=== PATIENT | female | born 1955 | race Caucasian/White ===

== ENCOUNTER 2019-03-06 14:35 | Inpatient (IN) ==
[2019-03-06 16:32] LABS: BASO# 0.03 X1000 (0.0-0.2); BASO% 0.2 % (0.0-0.8); EOS# 0.02 X1000 (0.0-0.7); EOS% 0.2 % (0.0-10.0); HEMATOCRIT 37.3 % (37.0-47.0); HEMOGLOBIN 12.2 g/dL (12.0-16.0); IMM GRAN# 0.17 X1000 (0.0-0.04); IMM GRAN% 1.3 % (0.0-0.5); LYMPH# 6.74 X1000 (1.2-3.4); LYMPH% 51.6 % (20.5-51.1); MCH 30.2 PG (27-31); MCHC 32.7 g/dL (33-37); MCV 92.3 FL (81-99); MONO# 0.83 X1000 (0.11-0.59); MONO% 6.4 % (1.7-9.3); MPV 10.2 FL (7.4-10.4); NEUT# 5.28 X1000 (1.4-6.5); NEUT% 40.3 % (42.2-75.2); PLT 230 X1000 (130-400); RBC 4.04 XMIL (4.2-5.4); RDW 16.2 % (11.5-14.5); WBC 13.07 X1000 (4.8-10.8)
--- NOTE | 2019-03-06 16:43 | Diag Imaging Result Doc PS360 ---
EXAM: CT HEAD W/O CONTRAST INDICATION: altered mental status TECHNIQUE: This exam was performed using automated exposure control, adjustment of mA or kV according to patient size, and/or use of iterative reconstruction technique. COMPARISON: 08/05/2017 FINDINGS: There is no definite acute infarct given the limited sensitivity of CT versus MRI. There is no discrete intracranial mass, mass effect, or intracranial hemorrhage. The surrounding soft tissues and bony structures are essentially unremarkable. IMPRESSION: No evidence of acute intracranial pathology. Electronically signed by Arcadio Stockton 03/06/2019 4:40 PM
[2019-03-06 16:52] LABS: ALB/GLOB RATIO 1.7; ALBUMIN 3.9 g/dL (3.5-5.0); CALCIUM 8.3 mg/dL (8.8-10.2); CREATININE 4.6 mg/dL (0.5-0.9); POTASSIUM 3.6 mmol/L (3.5-5.1); TOTAL BILIRUBIN 0.28 mg/dL (0.20-1.00); TOTAL PROTEIN 6.2 g/dL (6.3-8.3)
--- NOTE | 2019-03-06 16:55 | Diag Imaging Result Doc PS360 ---
EXAM: CHEST-2 VIEWS INDICATION: altered mental status TECHNIQUE: 2 views COMPARISON: 08/12/2017 FINDINGS: The central vasculature appears slightly prominent suggesting possible pulmonary venous congestion. There is also possible mild infiltrate near the right lung apex. There is no discrete pleural fluid collection or pneumothorax. The heart is mildly prominent but stable. IMPRESSION: Suggestion of mild pulmonary venous congestion and a possible developing infiltrate in the right upper lobe near the apex. Electronically signed by Arcadio Stockton 03/06/2019 4:53 PM
[2019-03-06 17:21] LABS: CK INDEX 4.5 (0.0-2.5); CK-MB 25.58 ng/mL (0.0-5.0)
[2019-03-06] MEDS ORDERED: NS 1,000 ML IV ONE (17:45)
--- NOTE | 2019-03-06 17:56 | PROVIDER DOCUMENTATION ---
This chart was entered by Rosie Zamora Scribe, acting as scribe for Gage Soliz DO. HPI-General Adult - General Chief Complaint: Altered Mental Status Stated Complaint: AMS Time Seen by Provider: 03/06/19 14:38 Source: patient, family (Daughter) Allergies/Adverse Reactions: Patient Allergies Allergy/AdvReac Type Severity Reaction Status Date / Time levofloxacin [From Levaquin] AdvReac NAUSEA/VOMI Verified 03/06/19 15:32 TING Home Medications: Home Medication List Medication Instructions Recorded Confirmed Last Taken Type Rosuvastatin Calcium 10 mg PO QHS 07/16/17 08/05/17 Unknown History Alprazolam [Xanax] 0.5 mg PO TID #90 tab 08/02/17 08/05/17 Unknown Rx Baclofen 20 mg PO TID #90 tab 08/02/17 08/05/17 Unknown Rx Duloxetine [Cymbalta] 60 mg PO DAILY #30 cap 08/02/17 08/05/17 Unknown Rx Hydrochlorothiazide 20 mg PO QAM #30 tab 08/02/17 08/05/17 Unknown Rx Windthorst Carbonate E.r. [Lithobid] 300 mg PO QHS #30 tab 08/02/17 08/05/17 Unknown Rx Temazepam [Restoril] 30 mg PO HS PRN PRN #30 capsule 08/02/17 08/05/17 Unknown Rx Trazodone [Desyrel] 100 mg PO HS PRN PRN #30 tab 08/02/17 08/05/17 Unknown Rx Iron Carbonyl/Ascorbic Acid 1 each PO BID tablet 08/19/17 Unknown Rx [Icar-C] Levetiracetam [Keppra] 500 mg PO BID tablet 08/19/17 Unknown Rx - History of Present Illness -Gen Adult Nature of Presenting Problems: 63 y/o female with h/o bipolar disorder is brought to the ED via EMS with AMS. Daughter states a neighbor called and told her to check on the patient. Daughter states on her arrival the patient's apartment was a mess including feces in the floor and the patient was in the bathroom refusing to come out. The daughter believes the patient has not eaten or bathed in at least several days. The patient denies pain. Location of Pain/Injury: reports: generalized Onset/Duration: reports: unsure Timing: reports: still present Associated Symptoms: reports: denies symptoms Similar Symptoms Previously?: Yes Review of Systems - Adult - REVIEW OF SYSTEMS - ADULT ROS:: unobtainable per condition (The patient is confused, lethargic but denies pain) Constitutional: reports: no symptoms reported Past History - Adult - PAST MEDICAL HISTORY-ADULT Review of Records: reports: Old Records Reviewed, Nursing Assessment Review, Medications Reviewed Major Childhood Illnesses: reports: denies history Cardiovascular: reports: HTN, hyperlipidemia Respiratory: reports: denies history Gastrointestinal: reports: denies history Obstetrical/Gynecological: reports: denies history Genitourinary: reports: denies history Musculoskeletal: reports: chronic pain (back) Neurological: reports: denies history Psychiatric: reports: bipolar, depression Endocrine/Immune: reports: denies history Other Conditions: reports: denies history - PRIOR SURGERIES/PROCEDURES Surgical/Procedure History: reports: other (spinal fusion) - PRIOR HOSPITALIZATIONS Prior Hospitalizations: reports: psychiatric or rehab - IMMUNIZATION STATUS Childhood Immunizations: See Nurse Assessment Flu Vaccine: See Nurse Assessment - FAMILY HISTORY Family History: reviewed, not pertinent - SOCIAL HISTORY Smoking: cigarettes Living Situation: alone Physical Exam-General - PHYSICAL EXAM-ADULT Initial Vital Signs Reviewed: Yes - CONSTITUTIONAL General Appearance: lethargic (but responsive), other (confused) - HEAD, EARS, NOSE, MOUTH & THROAT HENMT: normocephalic/atraumatic, moist mucous membranes - NECK Neck: supple - RESPIRATORY Respiratory: lungs clear, normal breath sounds. negative: rales, rhonchi, wheezing - CARDIOVASCULAR Cardiovascular: regular rate, rhythm, no gallop - GASTROINTESTINAL (ABDOMEN) Abdominal Exam: non tender, soft. negative: guarding, rebound - SKIN Integumentary: normal color, warm/dry. 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 nml as tested, other (confused) - PSYCHIATRIC Psych/Mental Status: other (confused) Progress - PLAN OF CARE/RESULTS Progress/Plan/Lab Results: Vital Signs - 8 hr 03/06/19 14:39 Temperature 97.6 F Pulse Rate 79 Respiratory Rate 18 Blood Pressure 130/71 O2 Sat by Pulse Oximetry 95 Result Diagrams: 03/06/19 16:18 03/06/19 16:18 - EKG 1 Time of EKG reading by physician:: 15:21 EKG Read and Signed by:: Gage Soliz EKG Interpretation (*Must complete 3 of following elements*): Abnormal Rate: 79 Rhythm: NSR Comments: possible left atrial enlargement, nonspecific T wave abnormality - CT/MRI 1 CT Study: Head (EXAM: CT HEAD W/O CONTRAST INDICATION: altered mental status TECHNIQUE: This exam was performed using automated exposure control, adjustment of mA or kV according to patient size, and/or use of iterative reconstruction technique. COMPARISON: 08/05/2017 FINDINGS: There is no definite acute infarct given the limited sensitivity of CT versus MRI. There is no discrete intracranial mass, mass effect, or intracranial hemorrhage. The surrounding soft tissues and bony structures are essentially unremarkable. IMPRESSION: No evidence of acute intracranial pathology. Electronically signed by Arcadio Stockton 03/06/2019 4:40 PM) - CONSULTS/PCP/HOSPITALIST Notification #1 *Consult/PCP/Hospitalist*: Hospitalist[facility]neha Time Discussed: 17:53 Reason/Comments: rhabdo, CK elevated, AMS Consult Disposition: Admit (Dr. Macedo) Departure - Departure Date of Disposition Decision: 03/06/19 Time of Disposition Decision: 17:54 DIAGNOSIS: Acute renal failure Qualifiers: Acute renal failure type: unspecified Qualified Code(s): N17.9 - Acute kidney failure, unspecified Pneumonia Qualifiers: Pneumonia type: due to unspecified organism Laterality: right Lung location: upper lobe of lung Qualified Code(s): J18.1 - Lobar pneumonia, unspecified organism Disposition: ADMITTED INPATIENT 09 Certified Medical Emergency: Emergent Condition: Serious Referrals and Follow-Ups: None,PCP [NON-STAFF PROVIDER] - - Critical Care Note This patient required my direct & personal management of CC.: No Attestation - Physician/ MARY Attestation Patient care was provided by Advanced Practice Provider:: No The physician spent face to face time with patient:: Yes Advanced Practice Provider documentation review:: Supervising physician onsite and consulted in the evaluation and care of this patient. The physician did have a face to face encounter with the patient. This chart was documented by the indicated scribe, (Rosie Zamora, Catina) and accurately reflects the services I performed and decisions made by , Gage Soliz DO, as attested by the provider's signature.
[2019-03-06 19:07] LABS: FREE T4 0.78 ng/dL (0.93-1.70); TSH 0.62 uIUmL (0.27-4.20)
[2019-03-06] MEDS ORDERED: TYLENOL PO PRN (19:17)
[2019-03-06] MEDS ORDERED: CLINDAMYCIN 600 MG/NS 600 MG/50 ML IVPB IV SCH (19:17)
[2019-03-06] MEDS: NS 1,000 ML IV SCH (19:17)
[2019-03-06] MEDS ORDERED: ZOFRAN IV PRN (19:17)
[2019-03-06] MEDS: DUONEB (A & A) INH SCH ×2 (19:30→23:57)
--- NOTE | 2019-03-06 19:32 | HISTORY AND PHYSICAL ---
HISTORY OF PRESENT ILLNESS: Ms. Blanc is a patient of Dr. Jay Lane, a 63-year-old with a history of obesity, history of bipolar, depression, hypertension, dyslipidemia, diabetes mellitus type 2, which I think has been controlled with diet. History of renal mass which was benign, but she had a partial nephrectomy. She has recently been at [facility]. She has had suicide attempts in the past and she has had a history of a thyroid mass with partial thyroidectomy and degenerative disk disease. SURGICAL HISTORY: 1. Status post back surgery. 2. Appendectomy. 3. Hysterectomy. 4. Partial thyroidectomy. 5. Right partial nephrectomy. SOCIAL HISTORY: One pack per day smoker. Still smokes over 30 years. No illicit drugs. No alcohol. FAMILY HISTORY: The mother has a history of breast cancer, history of hypertension, hyperlipidemia. The patient's father had bladder cancer and hypertension. ALLERGIES: No known drug allergies. MEDICATIONS: Looked like she is on lithium extended release 300 mg nightly, but this may have been changed. She has gone to [place] since then. She was on some Desyrel 100 mg at night, so we will look at her most current list. REVIEW OF SYSTEMS: Unable to list them from patient. Review of systems unable to obtain. Her daughter does not know of any chest pain or shortness of breath or change in bowel habits. I think the last time they talk to her was on Thursday. Today is Thursday. She seemed to be independent and no complaints. Her neighbor called today and said that her apartment was in disarray and that there was feces scattered over the house and she was very confused and incontinent of bowel and bladder. There was no sign of physical injury and no sign to suggest seizure or altercation, so not really sure what happened. EXAM IN THE EMERGENCY ROOM: Vital signs: Temperature 97.6 degrees, pulse 76, respirations 20, blood pressure 119/57. Weight is 280 pounds. Height 5 feet 7 inches. HEENT: Pupils are equal and round. Lungs: Clear in all lung tyler. Cardiovascular: Regular rhythm and rate without murmur or S3. Abdomen: Soft. Skin: Skin was warm and dry. Neurologic: She was lethargic. She would respond to touch and to questions, but kind of just babbling. Tangential speech. LABORATORIES: White count is 13,070, hematocrit is 37, platelet count is 230,000. Sodium 128, potassium 3.6, chloride 84, BUN is 88, creatinine 4.6, blood sugar 144, calcium is 8.3. CK is 570, troponin less than 0.1. ProBNP was 950, albumin 3.9. Chest x-ray: Suggestion of mild pulmonary congestion, possible developing infiltrate in the right upper lobe. Head CT without contrast: No evidence of acute intracranial pathology. ASSESSMENT AND PLAN: 1. Presents with global encephalopathy, not sure what happened. We need to get a urine for drug screen and look at her drug screen. We need to check T4, TSH, B12, and folate. We need to check an ammonia level on her and we can check those tonight. 2. She has acute kidney injury. Creatinine is 4.6. Her last creatinine was 1.2 in July of this year. So, I see where it has been up in the 2s before, but this appears to be prerenal. We will check a spot urine for sodium, osmolality and creatinine, and we will give her some fluids and run fluids at 125 mL of normal saline. Looking back at her echocardiogram in July, she had normal left ventricular size and ejection fraction. No valvular dysfunction. So she ought to be able to tolerate the fluids well. 3. History of bipolar. Need to see what she was on for medications and get her back on it. It looks like she was on Xanax 0.5 mg t.i.d. and lithium ER 300 mg at bedtime. She was on trazodone 100 mg at bedtime p.r.n., Restoril 30 mg at bedtime p.r.n. Also, she was on Cymbalta 60 mg daily. 4. Diabetes. Apparently is controlled with diet. We will check pattern sugars. We will check a hemoglobin A1c. Probably worthwhile to check a lipid profile in the morning as well. 5. Apparently, she has had a history of seizure. She is on Keppra 500 mg p.o. b.i.d. and we will continue those. There is no way to know she did not have another seizure. 6. Her blood work, her lactate level. It is probably worth checking a lactate level. Her CK was not significantly elevated, although it was 570. PLAN: So in summary, presented with altered mental status. I do not have any details of what happened. It looks like she is predominantly prerenal. She does have some mild hyponatremia, but she appears to be volume contracted, so we will treat her for hypovolemic, hyponatremia and prerenal acute kidney injury. See if we can get her back on her medications. cc: Jim Macedo MD
[2019-03-06 20:14] LABS: CK INDEX 4.3 (0.0-2.5); CK-MB 19.73 ng/mL (0.0-5.0)
[2019-03-06 20:18] LABS: URINE SOURCE CATH
[2019-03-06] MEDS: ROCEPHIN 1 GM in NS 50 ML IV SCH (20:20)
[2019-03-06 20:36] LABS: BILIRUBIN URINE NEGATIVE (NEGATIVE); BLOOD URINE SMALL (NEGATIVE); COLOR YELLOW; GLUCOSE URINE NEGATIVE (NEGATIVE); KETONE URINE NEGATIVE (NEGATIVE); LEUKOCYTES URINE NEGATIVE (NEGATIVE); NITRITE URINE NEGATIVE (NEGATIVE); PH URINE 5.5; PROTEIN URINE 30 mg/dL (NEGATIVE); SP GRAVITY URINE 1.013; TURBIDITY URINE CLEAR (CLEAR); UROBILINOGEN URINE NORMAL (NORMAL)
[2019-03-06] MEDS: CLINDAMYCIN 600 MG/D5W 600 MG/50 ML IVPB IV SCH (20:36)
[2019-03-06 20:43] LABS: UR EPITHELIAL CELLS <10 /HPF (<10); URINE BACTERIA NEGATIVE /HPF; URINE WBC <10 /HPF (<10)
[2019-03-06 20:58] LABS: UR AMPHETAMINES QUAL NONE DETECTED (NONE DETECT); UR BARBITUATES QUAL NONE DETECTED (NONE DETECT); UR BENZODIAZEPIN QUAL PRESUMPTIVE POSITIVE (NONE DETECT); UR CANNABINOIDS QUAL NONE DETECTED (NONE DETECT); UR COCAINE QUAL NONE DETECTED (NONE DETECT); UR CREAT RANDOM 95.3 mg/dL (11-20); UR METHADONE QUAL NONE DETECTED (NONE DETECT); UR OPIATES QUAL NONE DETECTED (NONE DETECT); UR OXYCODONE QUAL NONE DETECTED (NONE DETECT); UR PCP QUAL NONE DETECTED (NONE DETECT)
--- NOTE | 2019-03-06 23:17 | EKG Report ---
Test Performed on : 03/06/2019 3:21:49 PM Test Reason : ams Blood Pressure : / mmHG Vent. Rate : 079 BPM Atrial Rate : 079 BPM P-R Int : 160 ms QRS Dur : 102 ms QT Int : 372 ms P-R-T Axes : 055 044 046 degrees QTc Int : 426 ms Normal sinus rhythm. Possible Left atrial enlargement Nonspecific T wave abnormality Abnormal ECG When compared with ECG of 06-AUG-2017 06:21, Nonspecific T wave abnormality, worse in Inferior leads Nonspecific T wave abnormality now evident in Lateral leads Confirmed by Brad HERNANDEZ, Ramy ([id number]) on 03/07/2019 9:22:19 AM
[2019-03-07] MEDS: NS 1,000 ML IV SCH ×3 (02:35→21:13)
[2019-03-07] MEDS: DUONEB (A & A) INH SCH ×6 (03:26→22:39)
[2019-03-07] MEDS: CLINDAMYCIN 600 MG/D5W 600 MG/50 ML IVPB IV SCH ×3 (03:59→21:09)
[2019-03-07 07:42] LABS: BASO# 0.02 X1000 (0.0-0.2); BASO% 0.2 % (0.0-0.8); EOS# 0.03 X1000 (0.0-0.7); EOS% 0.3 % (0.0-10.0); HEMATOCRIT 38.1 % (37.0-47.0); HEMOGLOBIN 12.3 g/dL (12.0-16.0); IMM GRAN# 0.14 X1000 (0.0-0.04); IMM GRAN% 1.2 % (0.0-0.5); LYMPH# 5.77 X1000 (1.2-3.4); LYMPH% 51.1 % (20.5-51.1); MCH 30.3 PG (27-31); MCHC 32.3 g/dL (33-37); MCV 93.8 FL (81-99); MONO% 6.2 % (1.7-9.3); MPV 10.3 FL (7.4-10.4); NEUT# 4.64 X1000 (1.4-6.5); PLT 231 X1000 (130-400); RBC 4.06 XMIL (4.2-5.4); RDW 16.6 % (11.5-14.5)
[2019-03-07 07:59] LABS: CALCIUM 8.6 mg/dL (8.8-10.2); CREATININE 3.7 mg/dL (0.5-0.9); POTASSIUM 3.5 mmol/L (3.5-5.1)
[2019-03-07 08:43] LABS: BANDS 2 % (0-1); LYMPHS 60 % (21-51); MONO 2 % (1-9); SEGS 26 % (42-75)
--- NOTE | 2019-03-07 09:14 | PROGRESS NOTE ---
DATE: 03/07/2019 SUBJECTIVE: Ms. Blanc is awake and alert and feels much better. She remembers a little bit about what happened yesterday. She said over the weekend, she just got confused and she did not eat or drink much. OBJECTIVE: Vital Signs: Her temp is 98.3 degrees, pulse 73, respirations 20, blood pressure 167/45. HEENT: Pupils are equal and round. Lungs: Clear in all lung tyler. Cardiovascular: Regular rhythm and rate without murmur or S3. Urine output is 4600 mL. LABORATORY DATA: This morning, white count was 11,300, hematocrit 38, platelet count 231,000. Chemistry: Sodium 135, potassium 3.5, chloride 92, BUN 83, creatinine 3.7. Her CK came down to 231. ASSESSMENT AND PLAN: 1. Found confused on the floor in her apartment, and with acute kidney injury. We suspect prerenal. We will continue fluids. Creatinine is coming down from 4.6 to 3.6, so continue present fluids. 2. Bipolar disorder. She says she has been taking her medication. Her drug screen was positive for benzodiazepines. I do not know if we got a lithium level. She appears to be improving. 3. Not sure about discharge plans. Daughters have discussed whether she needs to go into [facility], so will explore that. Will make sure she is back on her lithium. cc: Jim Macedo MD
[2019-03-07 09:44] LABS: CK INDEX 5.8 (0.0-2.5); CK-MB 13.47 ng/mL (0.0-5.0)
[2019-03-07] MEDS: ROCEPHIN 1 GM in NS 50 ML IV SCH (18:41)
[2019-03-07] MEDS: SEROQUEL PO SCH (21:09)
[2019-03-07] MEDS: CYMBALTA PO SCH (21:09)
[2019-03-07] MEDS: DESYREL PO SCH (21:09)
[2019-03-07] MEDS: LITHOBID PO SCH (21:09)
[2019-03-08] MEDS: DUONEB (A & A) INH SCH ×6 (03:26→23:09)
[2019-03-08] MEDS: CLINDAMYCIN 600 MG/D5W 600 MG/50 ML IVPB IV SCH ×3 (04:03→21:23)
[2019-03-08] MEDS: NS 1,000 ML IV SCH ×4 (04:04→21:23)
--- NOTE | 2019-03-08 15:26 | PROGRESS NOTE ---
DATE: 03/08/2019 SUBJECTIVE: Today Ms. Blanc refers to be doing fairly okay. Denies any new complaints. She was, however, unable to tell me why she came to the hospital. OBJECTIVE: Vital signs: Blood pressure is 106/48, pulse of 70, respirations 15, temperature 97.6 degrees. Patient is saturating 91% on nasal cannula. General: Ms. Blanc is a 63-year-old female. She is in bed, no distress. HEENT: Mucosa is pink and moist. Anicteric. Acyanotic. Neck: Supple. Chest: Air entry is bilateral. There are some crackles in the posterior lung tyler bilaterally. Cardiovascular: Regular rate and rhythm. Abdomen: Soft, nontender. Bowel sounds present. Extremities: No pedal edema. CONTENT CHECKER: Patient has the eyes closed but she is responding very appropriately to interrogations and will follow basic commands. LABORATORY DATA: None for today. ASSESSMENT: 1. Altered mental status on presentation with unremarkable initial neuro imaging and no focalization, presumably drug induced versus metabolic encephalopathy. We will continue monitoring. 2. Acute on chronic renal failure. Creatinine is down to 3.7. 3. History of bipolar disorder. 4. Questionable aspiration pneumonia in the right upper lobe. Patient is on antimicrobial coverage. PLAN: So in general, I think Ms. Blanc seems to be doing well. She does not really seem encephalopathic to me. She is just not opening her eyes when she is being questioned, but responses are pretty appropriate. We are going to continue the current management, hydration, and re-evaluate her renal function tests tomorrow. cc: Alfred Howard MD
[2019-03-08] MEDS: ROCEPHIN 1 GM in NS 50 ML IV SCH (21:22)
[2019-03-08] MEDS: CYMBALTA PO SCH (21:23)
[2019-03-08] MEDS: DESYREL PO SCH (21:23)
[2019-03-08] MEDS: SEROQUEL PO SCH (21:23)
[2019-03-08] MEDS: LITHOBID PO SCH (21:24)
[2019-03-09] MEDS: NS 1,000 ML IV SCH ×5 (03:00→18:35)
[2019-03-09] MEDS: CLINDAMYCIN 600 MG/D5W 600 MG/50 ML IVPB IV SCH ×3 (03:00→22:15)
[2019-03-09] MEDS: DUONEB (A & A) INH SCH ×6 (03:35→23:48)
[2019-03-09 07:27] LABS: HEMATOCRIT 34.4 % (37.0-47.0); HEMOGLOBIN 10.6 g/dL (12.0-16.0); MCH 30.2 PG (27-31); MCHC 30.8 g/dL (33-37); MPV 10.5 FL (7.4-10.4); RBC 3.51 XMIL (4.2-5.4); RDW 17.5 % (11.5-14.5); WBC 10.47 X1000 (4.8-10.8)
[2019-03-09 08:14] LABS: ALB/GLOB RATIO 1.3; ALBUMIN 3.4 g/dL (3.5-5.0); CALCIUM 8.5 mg/dL (8.8-10.2); CREATININE 1.7 mg/dL (0.5-0.9); POTASSIUM 3.3 mmol/L (3.5-5.1); TOTAL BILIRUBIN 0.18 mg/dL (0.20-1.00); TOTAL PROTEIN 6.1 g/dL (6.3-8.3)
[2019-03-09] MEDS ORDERED: KLOR-CON PO ONE (08:59)
--- NOTE | 2019-03-09 11:39 | PROGRESS NOTE ---
DATE: 03/09/2019 SUBJECTIVE: This morning, Ms. Blanc refers to be doing quite better. She was more interacting and conversational with me today. There is no family member at the bedside. OBJECTIVE: Vital Signs: Blood pressure 157/79, pulse of 94, respirations 21, temperature is 98.5 degrees, the patient is saturating 94% on 2 L. General: Ms. Blanc is a 63-year-old female. She is in bed. No distress. HEENT: Mucosa is pink and moist. Anicteric. Acyanotic. Neck: Supple. No JVD. Chest: Good air entry bilateral. Few crackles posteriorly in bilateral lung tyler. Cardiovascular: Regular rate and rhythm. No murmurs, no rubs, no gallops. GI: Abdomen is soft, distended, but nontender. Bowel sounds present. EMAIL PRODUCER: The patient is awake, more communicating, follows basic commands. Does not seem to have any focal deficit. LABORATORY DATA: WBC is 10.47, hemoglobin is 10.6, platelet count of 182,000. Chemistry is also reviewed. Potassium is 3.3, BUN is down to 43, and creatinine is down to 1.7. MEDICATIONS: Current medications have all been reviewed. No changes. ASSESSMENT: 1. Altered mental status on presentation with unremarkable initial neuroimaging and no focalization. This is presumed to be global encephalopathy, possibly due to drug and metabolic encephalopathy. The patient's mentation seems to be getting better. She is more communicative today. 2. Acute on chronic renal failure. Creatinine continues to be trending down. 3. History of bipolar disorder. 4. Right upper lobe infiltrate concerning for aspiration pneumonia. The patient is on antimicrobial coverage. 5. Obesity with body mass index of 33.8. 6. Hypokalemia. We will replace this. cc: Alfred Howard MD
[2019-03-09] MEDS: ROCEPHIN 1 GM in NS 50 ML IV SCH (20:59)
[2019-03-09] MEDS: SEROQUEL PO SCH (21:00)
[2019-03-09] MEDS: CYMBALTA PO SCH (21:00)
[2019-03-09] MEDS: LITHOBID PO SCH ×2 (21:02→22:15)
[2019-03-09] MEDS: DESYREL PO SCH (21:05)
[2019-03-10] MEDS: DUONEB (A & A) INH SCH ×6 (04:27→23:21)
[2019-03-10] MEDS: CLINDAMYCIN 600 MG/D5W 600 MG/50 ML IVPB IV SCH ×3 (05:40→21:56)
[2019-03-10] MEDS: NS 1,000 ML IV SCH ×2 (05:43→10:33)
[2019-03-10 07:38] LABS: HEMATOCRIT 36.8 % (37.0-47.0); HEMOGLOBIN 11.5 g/dL (12.0-16.0); MCH 30.9 PG (27-31); MCHC 31.3 g/dL (33-37); MCV 98.9 FL (81-99); MPV 10.3 FL (7.4-10.4); RBC 3.72 XMIL (4.2-5.4); RDW 17.5 % (11.5-14.5); WBC 11.42 X1000 (4.8-10.8)
[2019-03-10 08:01] LABS: ALBUMIN 3.5 g/dL (3.5-5.0); CALCIUM 8.7 mg/dL (8.8-10.2); CREATININE 1.4 mg/dL (0.5-0.9); PHOSPHORUS 1.8 mg/dL (2.7-4.5); POTASSIUM 3.8 mmol/L (3.5-5.1)
--- NOTE | 2019-03-10 16:17 | DISCHARGE SUMMARY ---
ADMISSION DATE: 03/06/2019 DISCHARGE DATE: CONSULTATION DURING THIS ADMISSION: None. INVASIVE PROCEDURES DURING ADMISSION: None. IMAGING STUDIES OF SIGNIFICANCE: 1. Chest x-ray did show mild pulmonary venous congestion, and possible developing infiltrates in the upper lobe. 2. CT scan of the head showed no evidence of acute disease. DIAGNOSES AT TIME OF ADMISSION: 1. Global encephalopathy. 2. Acute kidney injury. 3. Bipolar disorder. 4. Diabetes mellitus. DIAGNOSES AT TIME OF DISCHARGE: 1. Altered mental status on presentation secondary to global encephalopathy and metabolic encephalopathy improved. 2. Acute on chronic renal failure, creatinine came down to 1.4 from 4.6 on admission. 3. Acute hypoxemic respiratory failure. 4. Right upper lobe infiltrate concerning for aspiration pneumonia. 5. Pulmonary venous congestion and pulmonary edema secondary to congestive heart failure with preserved ejection fraction. 6. Obesity with BMI of 33.8. 7. History of bipolar disorder. 8. Dyslipidemia. 9. Vitamin and mineral deficiencies including iron and folate. Will continue oral replacement DISCHARGE MEDICATIONS: 1. [place] 300 mg p.o. at bedtime. 2. Baclofen 20 mg 3 times per day. 3. Quetiapine 300 mg p.o. at bedtime. 4. Duloxetine 60 mg p.o. at bedtime. 5. Trazodone 100 mg p.o. at bedtime. 6. Iron Sulfate 325 b.i.d. 7. Folic Acid 1 mg p.o. daily. 8. Neutra-Phos. 9. Augmentin 875 p.o. daily. PRESENTING COMPLAINT: Shortness of breath and altered mental status. HISTORY OF PRESENTING COMPLAINT: Ms. Blanc is a 64-year-old female who is known to have bipolar disorder, depression, hypertension, and diabetes, came to the emergency room with her daughter because of shortness of breath and altered mental status. Upon presentation, she was evaluated, and was found to be remarkably volume depleted. Acute kidney injury with creatinine going up to 4.6 from a baseline of about 1.2 to 1.4. Ms. Blanc was admitted to the medical floor for further medical management. HOSPITAL COURSE: Ms. Blanc was started on broad-spectrum IV antibiotics for the pneumonitis. Initially, she was also fluid resuscitated because of the abnormal renal function. Gradually, she continues to get better. Her creatinine got normalized to 1.4 which we think is her baseline. Ms. Blanc was also found to be both iron, vitamin and folate deficient from previous lab studies so she was started on oral replacement. Her A1c during the hospital course was found to be 7.0. However, she denies any ongoing hyperglycemic symptoms. Her glucose occasionally goes above 120. We however advised that she gets evaluated on outpatient for that before we commit her to medications, and the same goes with her cholesterol which was minimally elevated. Ms. Blanc was found to be hypoxemic, which we think was a combination of fluid in her lungs as well as the pneumonitis. She has been evaluated for home 02 oxygen, which she qualifies because of her diastolic heart failure. We have notified the pediatric social worker to help arrangements for home 02 oxygen. Ms. Blanc is also supposed to follow up with mental health as well as [facility]. All the discharge instructions have been discussed with her, and she voiced understanding. TIME SPENT: Time spent for discharge is 38 minutes. cc: Alfred Howard MD
[2019-03-10] MEDS ORDERED: NORVASC PO ONE (16:36)
[2019-03-10] MEDS ORDERED: NS 1,000 ML IV SCH (19:19)
[2019-03-10] MEDS: DESYREL PO SCH (21:56)
[2019-03-10] MEDS: SEROQUEL PO SCH (21:56)
[2019-03-10] MEDS: ROCEPHIN 1 GM in NS 50 ML IV SCH (21:56)
[2019-03-10] MEDS: NORVASC PO SCH (21:56)
[2019-03-10] MEDS: CYMBALTA PO SCH (21:56)
[2019-03-10] MEDS: LITHOBID PO SCH (21:57)
[2019-03-11] MEDS: DUONEB (A & A) INH SCH ×4 (03:28→15:43)
[2019-03-11] MEDS: CLINDAMYCIN 600 MG/D5W 600 MG/50 ML IVPB IV SCH ×2 (03:55→11:08)
[2019-03-11 07:56] LABS: ALBUMIN 3.5 g/dL (3.5-5.0); CALCIUM 8.6 mg/dL (8.8-10.2); CREATININE 1.2 mg/dL (0.5-0.9); PHOSPHORUS 1.8 mg/dL (2.7-4.5); POTASSIUM 3.7 mmol/L (3.5-5.1)
[2019-03-11] MEDS: NEUTRA-PHOS PO SCH ×2 (08:54→13:10)
[2019-03-11] MEDS: NORVASC PO SCH (08:54)
[2019-03-11] MEDS ORDERED: COREG PO SCH (09:00)
--- NOTE | 2019-03-11 11:50 | Diag Imaging Result Doc PS360 ---
EXAM: CHEST-2 VIEWS HISTORY: hypoxia TECHNIQUE: Two views COMPARISON: 03/06/2019 FINDINGS: The lungs are well expanded. The heart is mildly enlarged. There is central vascular and right hilar prominence similar to the prior exam. There are no infiltrates. No pleural effusions. IMPRESSION: Stable chest Electronically signed by Joon Meier 03/11/2019 11:47 AM
[2019-03-11] MEDS ORDERED: CATAPRES PO ONE (14:15)
[2019-03-11 14:53] LABS: URINE SOURCE CATH
[2019-03-11 14:55] LABS: BILIRUBIN URINE NEGATIVE (NEGATIVE); BLOOD URINE NEGATIVE (NEGATIVE); COLOR YELLOW; GLUCOSE URINE 200 mg/dL (NEGATIVE); KETONE URINE NEGATIVE (NEGATIVE); LEUKOCYTES URINE NEGATIVE (NEGATIVE); NITRITE URINE NEGATIVE (NEGATIVE); PH URINE 6.5; PROTEIN URINE 30 mg/dL (NEGATIVE); SP GRAVITY URINE 1.014; TURBIDITY URINE CLEAR (CLEAR); UROBILINOGEN URINE NORMAL (NORMAL)
[2019-03-11 14:57] LABS: UR EPITHELIAL CELLS <10 /HPF (<10); URINE BACTERIA NEGATIVE /HPF; URINE WBC <10 /HPF (<10)
[2019-03-11 15:16] LABS: URINE CASTS NONE SEEN; URINE CRYSTALS NONE SEEN; URINE YEAST PRESENT
[2019-03-11 15:26] VITALS: BP 187/80
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
[2019-03-11] MEDS ORDERED: CATAPRES PO SCH (21:00)
== END 2019-03-11 17:06 | DRG 177 ==
LOC: SUPCPDRO → ED 14:35 → EDIPHOLD 18:53 → SUATTDRO 18:53 → 3N 21:22
PROVIDERS: ATTEND Internal Medicine

== ENCOUNTER 2019-03-13 12:20 | Inpatient (IN) ==
[2019-03-13 12:32] LABS: BE 1.6 mmoll (-3.0-3.0); BLOOD TYPE ARTERIAL; HCO3-(ACT) 25.8 mmoll (20.0-26.0); METHB 0.6 % (0.0-1.5); O2(CT) 12.9 mL/dL (15.0-23.0); SAMPLE BLOOD; SAO2 82.9 % (95.0-100.0); THB 11.5 g/dL (11.5-17.4); pH(98.6) 7.34 (7.35-7.45)
[2019-03-13] MEDS ORDERED: DUONEB (A & A) INH ONE (12:37)
[2019-03-13 12:50] LABS: BASO# 0.03 X1000 (0.0-0.2); BASO% 0.2 % (0.0-0.8); EOS# 0.08 X1000 (0.0-0.7); EOS% 0.6 % (0.0-10.0); HEMATOCRIT 37.4 % (37.0-47.0); HEMOGLOBIN 11.1 g/dL (12.0-16.0); IMM GRAN# 0.12 X1000 (0.0-0.04); LYMPH# 3.52 X1000 (1.2-3.4); LYMPH% 28.4 % (20.5-51.1); MCHC 29.7 g/dL (33-37); MCV 101.1 FL (81-99); MONO% 6.4 % (1.7-9.3); MPV 10.1 FL (7.4-10.4); NEUT# 7.86 X1000 (1.4-6.5); NEUT% 63.4 % (42.2-75.2); PLT 201 X1000 (130-400); RDW 17.6 % (11.5-14.5); WBC 12.41 X1000 (4.8-10.8)
[2019-03-13 13:04] LABS: POTASSIUM 4.2 mmol/L (3.5-5.1); TOTAL BILIRUBIN 0.2 mg/dL (0.20-1.00); TOTAL PROTEIN 6.9 g/dL (6.3-8.3)
--- NOTE | 2019-03-13 13:04 | PROVIDER DOCUMENTATION ---
HPI-General Adult - General Chief Complaint: Shortness of Breath Stated Complaint: low o2sat Time Seen by Provider: 03/13/19 12:28 Source: EMS, other ([facility] front end assistant) Allergies/Adverse Reactions: Patient Allergies Allergy/AdvReac Type Severity Reaction Status Date / Time levofloxacin [From Levaquin] AdvReac Unknown NAUSEA/VOMI Verified 03/13/19 12:26 TING Home Medications: Home Medication List Medication Instructions Recorded Confirmed Last Taken Type Duloxetine [Cymbalta] 60 mg PO HS 03/06/19 03/13/19 03/12/19 History Trazodone [Desyrel] 100 mg PO HS 03/06/19 03/13/19 03/12/19 History Alprazolam 0.5 mg PO TID 03/11/19 03/13/19 03/13/19 History Baclofen 20 mg PO TID 03/11/19 03/13/19 03/13/19 History Quetiapine Fumarate 300 mg PO HS 03/11/19 03/13/19 03/12/19 History Amlodipine [Norvasc] 5 mg PO BID 03/12/19 03/13/19 03/13/19 History Amoxicillin/Pot Clavulanate 875 mg PO Q12HR 03/12/19 03/13/19 03/13/19 History [Augmentin] Carvedilol [Coreg] 12.5 mg PO Q12HR 03/12/19 03/13/19 03/13/19 History Ferrous Sulfate 325 mg PO BID 03/12/19 03/13/19 03/13/19 History Folic Acid 1 mg PO DAILY 03/12/19 03/13/19 03/13/19 History Iron/Calcium/E/Folic Acid/Mvit 1 ea PO DAILY 03/12/19 03/13/19 03/13/19 History [Vitafol Caplet] Naph,Mb-Db/K pH,Mbdb [Phos-Nak 1 ea PO BID 03/12/19 03/13/19 03/13/19 History Packet] Acetaminophen [Tylenol] 650 mg PO Q6H PRN PRN 03/13/19 03/13/19 Unknown History Albuterol Sulfate [Ventolin Hfa] 2 puff INHALATION Q6H PRN PRN 03/13/19 03/13/19 Unknown History Cyanocobalamin (Vitamin B-12) 1,000 mcg PO DAILY 03/13/19 03/13/19 03/13/19 History [Vitamin B12] Ergocalciferol (Vitamin D2) 50,000 unit PO Q7D 03/13/19 03/13/19 03/13/19 History [Vitamin D] Mag Hydrox/Al Hydrox/Simeth 30 ml PO Q6H PRN PRN 03/13/19 03/13/19 Unknown History [Maalox Plus] Magnesium Hydroxide [Milk of 30 ml PO DAILY PRN PRN 03/13/19 03/13/19 Unknown History Magnesia] Magnesium Oxide 400 mg PO BID 03/13/19 03/13/19 03/13/19 History Miconazole 2% Vag Cream 1 applicator VAG HS 03/13/19 03/13/19 03/12/19 History [Monistat-7 Vag Cream] Mupirocin Ointment [Bactroban 1 applicatn TOP BID 03/13/19 03/13/19 03/13/19 History Ointment] [place]-3 Fatty Acids/Fish Oil [Fish 1 ea PO QHS 03/13/19 03/13/19 03/12/19 History Oil 1,000 mg Capsule] Sennosides [Senokot] 2 ea PO DAILY PRN PRN 03/13/19 03/13/19 Unknown History Trazodone [Desyrel] 25 mg PO HS PRN PRN 03/13/19 03/13/19 Unknown History - History of Present Illness -Gen Adult Nature of Presenting Problems: [id number] presents to the ER from [facility] with low O2 sats via EMS. EMS reports that on arrival to the facility sats were 79%. On arrival to hospital patient is 93% on 5L NC. She is lethargic with AMS. Patient was just discharged from [facility] yesterday after spending 7 days as inpatient with diagnosis of pneumonia, hyponatremia, hypovolemia and pre-renal acute kidney injury. She was sent to [facility] on po antibiotics and was medically cleared with continued AMS. She denies any pain but reports SOB without exertion. WOB noted. Onset/Duration: reports: this morning Associated Symptoms: reports: shortness of breath. denies: cough, diaphoresis Similar Symptoms Previously?: Yes Recently seen or treated by another doctor?: Yes Review of Systems - Adult - REVIEW OF SYSTEMS - ADULT Constitutional: reports: see HPI. denies: chills, fever Eyes: reports: no symptoms reported Ears, Nose, Mouth & Throat: reports: no symptoms reported Cardiovascular: reports: no symptoms reported. denies: chest pain Respiratory: reports: see HPI, cough, shortness of breath Gastrointestinal: reports: no symptoms reported Genitourinary: reports: no symptoms reported Musculoskeletal: reports: no symptoms reported Integumentary: reports: no symptoms reported Neurological: reports: no symptoms reported Psychiatric: reports: no symptoms reported Endocrine: reports: no symptoms reported Hematologic/Lymphatic: reports: no symptoms reported Allergic/Immunologic: reports: no symptoms reported All Other Systems: Reviewed and Negative Past History - Adult - PAST MEDICAL HISTORY-ADULT Review of Records: reports: Old Records Reviewed, Nursing Assessment Review, Medications Reviewed, Social history reviewed & non-contributory. Major Childhood Illnesses: reports: denies history Cardiovascular: reports: HTN, hyperlipidemia Respiratory: reports: denies history Gastrointestinal: reports: denies history Obstetrical/Gynecological: reports: denies history Genitourinary: reports: denies history Musculoskeletal: reports: chronic pain (back) Neurological: reports: denies history Psychiatric: reports: bipolar, depression Endocrine/Immune: reports: denies history Other Conditions: reports: denies history - PRIOR SURGERIES/PROCEDURES Surgical/Procedure History: reports: other (spinal fusion) - PRIOR HOSPITALIZATIONS Prior Hospitalizations: reports: psychiatric or rehab - IMMUNIZATION STATUS Childhood Immunizations: See Nurse Assessment Flu Vaccine: See Nurse Assessment - FAMILY HISTORY Family History: reviewed, not pertinent - SOCIAL HISTORY Smoking: denies Substance Use: denies Living Situation: alone Physical Exam-General - PHYSICAL EXAM-ADULT Initial Vital Signs Reviewed: Yes - CONSTITUTIONAL General Appearance: moderate distress, lethargic - EYES Eyes: PERRL/EOMI, pink conjunctivae - HEAD, EARS, NOSE, MOUTH & THROAT HENMT: moist mucous membranes, TMs normal - NECK Neck: non-tender, full range of motion, supple - RESPIRATORY Respiratory: decreased breath sounds, rhonchi, increased rate - CARDIOVASCULAR Cardiovascular: regular rate, rhythm - GASTROINTESTINAL (ABDOMEN) Abdominal Exam: non tender, soft, distended - MUSCULOSKELETAL Back Exam: normal inspection Extremity: normal gait, normal inspection, pedal edema Peripheral Pulses: radial (R): 2+, radial (L): 2+ - SKIN Integumentary: normal color, warm/dry - NEUROLOGIC Neurologic: grossly normal Progress - PLAN OF CARE/RESULTS Progress/Plan/Lab Results: Vital Signs - 8 hr 03/13/19 12:21 03/13/19 12:35 Temperature 97.4 F L Pulse Rate 68 65 Respiratory Rate 32 H 24 Blood Pressure 151/80 149/86 O2 Sat by Pulse Oximetry 78 L 93 L Laboratory Results - last 24 hr 03/13/19 12:26 WBC 12.41 H RBC 3.70 L Hgb 11.1 L Hct 37.4 MCV 101.1 H MCH 30.0 MCHC 29.7 L RDW Std Deviation 17.6 H Plt Count 201 MPV 10.1 Immature Gran % (Auto) 1.0 H Neut % (Auto) 63.4 Lymph % (Auto) 28.4 [place] % (Auto) 6.4 Eos % (Auto) 0.6 Baso % (Auto) 0.2 Immature Gran # (Auto) 0.12 H Neut # (Auto) 7.86 H Lymph # (Auto) 3.52 H [place] # (Auto) 0.80 H Eos # (Auto) 0.08 Baso # (Auto) 0.03 Orders Category Date Time Status Saline Loc NOW Care 03/13/19 12:29 Active CHEST-2 VIEWS [RAD] Stat Exams 03/13/19 12:29 Ordered ABG [RESP] Routine Lab 03/13/19 12:28 Ordered BLOOD CULTURE [BLDCUL] Stat Lab 03/13/19 12:29 Ordered BNP [PRO B-NATRIURETIC PEPTIDE] Stat Lab 03/13/19 12:26 Received CBC WITH DIFF [HEME] Stat Lab 03/13/19 12:26 Results COMPREHENSIVE METABOLIC PANEL [CHEM] Stat Lab 03/13/19 12:26 Received LACTATE, PLASMA [CHEM] Stat Lab 03/13/19 12:26 Received UA NIMS W/REFLEX CULT [URINALYSIS] Stat Lab 03/13/19 12:36 Uncollected Albuterol 2.5MG/Ipratrop 0.5MG [Duoneb (A & A)] Med 03/13/19 12:37 Discontinued 3 ml INH NOW ONE Aerosol Treatments Routine Oth 03/13/19 12:37 Active Aerosol Treatments Stat Oth 03/13/19 12:37 Active Pulse Oximetry Stat Oth 03/13/19 12:29 Active Result Diagrams: 03/13/19 12:26 03/13/19 12:26 - CONSULTS/PCP/HOSPITALIST Notification #1 *Consult/PCP/Hospitalist*: Dr Osorio Time Discussed: 13:55 Reason/Comments: Acute resp failure with hypoxia and hypercapnia Departure - Departure Date of Disposition Decision: 03/13/19 Time of Disposition Decision: 14:11 DIAGNOSIS: Acute respiratory failure with hypoxia and hypercapnia Disposition: ADMITTED INPATIENT 09 Certified Medical Emergency: Emergent Condition: Critical - Critical Care Note This patient required my direct & personal management of CC.: Yes Total Time (mins): 43 Critical Care Statement: This patient required my direct personal management to treat or rule out processes, the absence of which, could potentiallly result in sudden, clinically significant life or limb threatening deterioration. Attestation - Physician/ MARY Attestation Patient care was provided by Advanced Practice Provider:: Yes Advanced Practice Provider:: Carl Bello Advanced Practice Provider documentation review:: The Mid-level provider documentation, treatment plan and medical decision making was reviewed by the physician who agrees with all treatment and medical decision making by the MLP. The physician spent face to face time with patient:: No Advanced Practice Provider documentation review:: Supervising physician onsite and consulted in the evaluation and care of this patient. The physician did not have a face to face encounter with the patient.
[2019-03-13 13:20] LABS: PCO2(98.6) 52 mmHg (35-45)
[2019-03-13 13:21] LABS: PO2(98.6) 38 mmHg (60-100)
[2019-03-13 13:21] LABS: URINE SOURCE CATH
[2019-03-13 13:22] LABS: ANISOCYTOSIS 2+; BANDS 1 % (0-1); EOS 2 % (1-10); LYMPHS 29 % (21-51); MONO 1 % (1-9); SEGS 67 % (42-75)
[2019-03-13 13:22] LABS: MODALITY ROOM AIR; O2HB 80.2 % (95.0-99.0)
[2019-03-13 13:23] LABS: ALLEN TEST YES
[2019-03-13 13:26] LABS: BILIRUBIN URINE NEGATIVE (NEGATIVE); BLOOD URINE NEGATIVE (NEGATIVE); COLOR YELLOW; GLUCOSE URINE TRACE mg/dL (NEGATIVE); KETONE URINE NEGATIVE (NEGATIVE); LEUKOCYTES URINE NEGATIVE (NEGATIVE); NITRITE URINE NEGATIVE (NEGATIVE); PROTEIN URINE 30 mg/dL (NEGATIVE); SP GRAVITY URINE 1.015; TURBIDITY URINE CLEAR (CLEAR); UROBILINOGEN URINE NORMAL (NORMAL)
[2019-03-13 13:27] LABS: UR EPITHELIAL CELLS <10 /HPF (<10); URINE BACTERIA NEGATIVE /HPF; URINE RBC <10 /HPF (<10); URINE WBC <10 /HPF (<10)
--- NOTE | 2019-03-13 13:47 | Diag Imaging Result Doc PS360 ---
CHEST-PORTABLE - 03/13/2019 INDICATION: SOB COMPARISON: 03/11/2019 FINDINGS: Stable mild cardiomegaly. Pulmonary vascularity is borderline distended. No infiltrates or edema. No pneumothorax or significant pleural effusion. IMPRESSION: Cardiomegaly. Mild pulmonary vascular congestion. Electronically signed by Victoriano Beard 03/13/2019 1:45 PM
[2019-03-13] MEDS ORDERED: LASIX IV ONE (13:52)
[2019-03-13] MEDS ORDERED: DUONEB (A & A) INH PRN (15:42)
[2019-03-13] MEDS: MAXIPIME 1 GM in NS 50 ML IV SCH (16:30)
[2019-03-13] MEDS: DUONEB (A & A) INH SCH ×3 (16:39→23:18)
[2019-03-13 17:03] LABS: BE 2.5 mmoll (-3.0-3.0); BLOOD TYPE ARTERIAL; HCO3-(ACT) 26.9 mmoll (20.0-26.0); METHB 1.1 % (0.0-1.5); O2(CT) 17.5 mL/dL (15.0-23.0); O2HB 96.1 % (95.0-99.0); PO2(98.6) 118 mmHg (60-100); SAMPLE BLOOD; SAO2 99.7 % (95.0-100.0); THB 12.8 g/dL (11.5-17.4); pH(98.6) 7.28 (7.35-7.45)
--- NOTE | 2019-03-13 17:04 | HISTORY AND PHYSICAL ---
PRIMARY CARE PROVIDER: Dr. Deni Ely. CHIEF COMPLAINT: Per Delphine Pettit low oxygen saturation. HISTORY OF PRESENT ILLNESS: Ms Blanc is a 63-year-old female who was recently discharged from our service on 03/11/2019 after being admitted with global encephalopathy, acute kidney injury, right upper lobe infiltrate concerning for aspiration pneumonia and pulmonary venous congestion and pulmonary edema secondary to congestive heart failure with preserved EF, as well as acute psychosis for which she had a [facility] consult for and was transferred there for psychiatric management. She was medically cleared for discharge on oxygen. Apparently while she was there, she was somewhat febrile at 99.1 and when the patient would fall asleep, even with supplemental O2. Her O2 saturations would drop into the 80s even after doing breathing treatments, incentive spirometry, and increasing her O2 up to 5 L. She continued to desaturate, so EMS was called and she was brought to the ED where she was 78% on room air and tachypneic. We placed her on 3 L nasal cannula. Oxygenation only came up to 90. They placed her on 5 L. She was only up to 93%. We checked an ABG. She was found to be hypercarbic. They placed her on BiPAP. She is now saturating at 100%. She has been hemodynamically stable. She has been afebrile since here. She does have a slightly elevated white count. Given her recent admission for pneumonia as well as UTI and suspicion for aspiration pneumonia, we will go ahead and broaden her spectrum of antibiotics and continue with IV diuresis, as she has doubled her proBNP, and we will recheck an echocardiogram and recheck an ABG at 4 p.m. PAST MEDICAL HISTORY: Hypertension, hyperlipidemia, chronic back pain, seizures, diabetes mellitus type 2, diet controlled, history of renal mass, which was benign, obesity, bipolar and depression, diastolic congestive heart failure, chronic kidney disease, recent pneumonia and urinary tract infection. PAST SURGICAL HISTORY: Spinal fusion, appendectomy, hysterectomy, partial thyroidectomy and right partial nephrectomy. SOCIAL HISTORY: She is a , disabled. Lives alone. Ex tobacco user. No alcohol or illicit drug use. FAMILY HISTORY: Positive for cancer, diabetes mellitus and hypertension. REVIEW OF SYSTEMS: Twelve-point review of systems hard to obtain. Patient is on BiPAP. She is sleepy. She does awaken to voice and she answers all questions with "I don't know." She did follow my commands. She squeezed my hands when asked. She did wiggle her toes. She did have some mild pitting edema to her lower extremities. ALLERGIES: To levofloxacin. HOME MEDICATIONS: Cymbalta, Desyrel, Xanax, baclofen, Cymbalta, Norvasc, Augmentin, Coreg, ferrous sulfate, folic acid, multivitamin, Tylenol, albuterol sulfate, vitamin B12, vitamin D, Maalox plus, milk of magnesia, Mag oxide, Monistat 7, Bactroban ointment, fish oil, Senokot, Desyrel. PHYSICAL EXAMINATION: VITAL SIGNS: heart rate 65, respiratory rate 19, blood pressure is 146/72, O2 is 100% on BiPAP at 40%. GENERAL: Ms. Blanc is a 63-year-old female who is lying on the stretcher on BiPAP in no acute distress. HEENT: Atraumatic, normocephalic. PERRL. NECK: Supple. Trachea midline. CARDIOVASCULAR: S1, S2 appreciated. No murmurs, gallops, or rubs noted. RESPIRATORY: Lung sounds with scattered rhonchi. I did not appreciate any wheezes. ABDOMEN: Soft, nontender, nondistended. Positive bowel sounds in four quadrants. LOWER EXTREMITIES: Generalized edema. Bilateral pedal pulses are palpable. NEUROLOGIC: The patient was sleeping. She did awaken to voice. She did follow some commands. She did not really answer any questions. She just mainly said "I don't know" to everything and then would go back to sleep. DIAGNOSTIC DATA: Chest x-ray with cardiomegaly, mild pulmonary vascular congestion. LABORATORY DATA: White count 12, hemoglobin and hematocrit 11 and 37, platelet count is 201,000. Blood gas: pH 7.34, pCO2 52, O2 38, base excess 1.6, O2 saturation was 82% on room air. Chemistry: Sodium 145, potassium 4.2, bicarb 24, BUN 18, creatinine 1.0. Blood glucose is 129. ProBNP is 2155. Plasma lactate was 0.7. Urinalysis was negative. ASSESSMENT AND PLAN: 1. Acute hypoxemic hypercarbic respiratory failure. The patient's oxygen saturations have improved on BiPAP, which we will continue. We will recheck her arterial blood gas at 4 o'clock. 2. Recent diagnosis of aspiration pneumonia. The patient did have a low-grade fever at [place] with some desaturations. We will go ahead and place her on broad-spectrum antibiotics just in case she has had another bout of aspiration pneumonia with Zyvox and cefepime. Continue supplemental oxygen and bronchodilators and recheck a chest x-ray in the a.m. 3. Congestive heart failure exacerbation. Her proBNP is up. Her chest x-ray shows pulmonary vascular congestion. She does have some generalized edema to her lower extremities. She was given a dose of intravenous Lasix in the emergency department. We will continue three more doses of intravenous Lasix. Recheck her proBNP after these doses of Lasix. Monitor strict intake and output and daily weights. Check an echocardiogram now. She does have diastolic dysfunction. 4. Metabolic encephalopathy, presumably secondary to hypoxemia and hypercarbia as well as underlying psychiatric issues and/or medications. We will continue with frequent neurologic checks. 5. History of bipolar and depression with a recent episode of acute psychosis. The patient was at [facility] getting treatment. 6. Hypertension, hemodynamically stable. 7. Chronic back pain. Aware. 8. Seizures. 9. Diabetes mellitus 2, controlled with diet. 10. Renal mass that is benign with a partial nephrectomy. Renal function is currently stable. 11. Further recommendation to follow physician evaluation, laboratory and diagnostic data. Dictated by ALDO Durant for Flynn Osorio MD cc: MD Deni Alcala MD MTDD
--- NOTE | 2019-03-13 17:09 | HISTORY AND PHYSICAL ---
ADDENDUM: The patient is seen and examined by myself. Full note dictated and discussed with nurse practitioner. Patient presented to the hospital from [facility]. She was discharged from [facility], I believe, yesterday secondary to pneumonia. After going to [place], they felt like today she was more confused and her oxygen saturation was 79%. She re-presented back to the hospital. She currently is on BiPAP. She does awaken when stimulated, quickly falls back asleep. We are going to put her back in the hospital and restart antibiotics. Continue BiPAP and will follow. cc: Flynn Osorio MD
[2019-03-13] MEDS: ZYVOX 600 MG/D5W 600 MG/300 ML IVPB IV SCH (17:22)
[2019-03-13 18:22] LABS: MODALITY BI PAP; PCO2(98.6) 66 mmHg (35-45)
[2019-03-13 18:23] LABS: SRATE 12 BPM
[2019-03-13] MEDS: LASIX IV SCH (20:10)
[2019-03-13] MEDS: DIFLUCAN 150 MG/NS 150 MG/75 ML IVPB IV SCH (20:10)
[2019-03-13] MEDS: MONISTAT-7 VAG CREAM VAG SCH (20:31)
[2019-03-14] MEDS: MAXIPIME 1 GM in NS 50 ML IV SCH ×2 (03:05→16:03)
[2019-03-14] MEDS: DUONEB (A & A) INH SCH ×6 (03:17→22:50)
[2019-03-14] MEDS: ZYVOX 600 MG/D5W 600 MG/300 ML IVPB IV SCH ×2 (05:05→18:15)
[2019-03-14 05:41] LABS: HEMATOCRIT 35.8 % (37.0-47.0); HEMOGLOBIN 10.7 g/dL (12.0-16.0); MCH 29.9 PG (27-31); MCHC 29.9 g/dL (33-37); RBC 3.58 XMIL (4.2-5.4); RDW 16.9 % (11.5-14.5); WBC 9.67 X1000 (4.8-10.8)
--- NOTE | 2019-03-14 05:56 | EKG Report ---
Test Performed on : 03/14/2019 05:55:24 AM Test Reason : Heart Failure Admission Blood Pressure : / mmHG Vent. Rate : 064 BPM Atrial Rate : 064 BPM P-R Int : 156 ms QRS Dur : 090 ms QT Int : 398 ms P-R-T Axes : 061 053 049 degrees QTc Int : 410 ms Normal sinus rhythm. Possible Left atrial enlargement Nonspecific T wave abnormality Abnormal ECG When compared with ECG of 06-MAR-2019 15:21, No significant change was found Confirmed by Benito Yang MD ([id number]) on 03/24/2019 1:50:58 AM
[2019-03-14 06:22] LABS: ALBUMIN 3.7 g/dL (3.5-5.0); CALCIUM 8.8 mg/dL (8.8-10.2); MAGNESIUM 1.7 mg/dL (1.5-2.7); POTASSIUM 3.6 mmol/L (3.5-5.1); TOTAL BILIRUBIN 0.3 mg/dL (0.20-1.00); TOTAL PROTEIN 6.5 g/dL (6.3-8.3)
--- NOTE | 2019-03-14 08:24 | Diag Imaging Result Doc PS360 ---
EXAM: CHEST-PORTABLE HISTORY: chf TECHNIQUE: Single view of the chest was performed portably. COMPARISON: 03/13/2019 FINDINGS: There is cardiomegaly. No definitive infiltrate on this limited portable view. No significant vascular congestion is appreciated. No effusion. IMPRESSION: Cardiomegaly. No definite infiltrate or effusion on this portable view. Electronically signed by Joelle Akhtar 03/14/2019 8:22 AM
[2019-03-14] MEDS: LASIX IV SCH ×2 (08:43→20:41)
[2019-03-14 09:26] LABS: ALLEN TEST YES
[2019-03-14] MEDS: MONISTAT-7 VAG CREAM VAG SCH (20:41)
--- NOTE | 2019-03-14 21:28 | ECHO REPORT ---
ORDER DATE: 03/13/2019 INTERPRETING PHYSICIAN: Dr. Cronin CLINICAL INDICATIONS: CHF. M-MODE MEASUREMENTS: Left ventricle end diastole: 4.4 cm. Left ventricle end systole: 2.8 cm. Posterior wall: 0.9 cm. Interventricular septum: 1.1 cm. Left atrium: 4.1 cm. Aortic diameter: 2.6 cm. SUMMARY OF 2-DIMENSIONAL IMAGIN. Left ventricular function is normal. Ejection fraction after administration of Optison is estimated to be at 60% to 65%. The study was very difficult. The left atrium is probably enlarged. 2. Aortic valve shows a relatively normal Doppler pattern. The valve is suboptimally visualized. The inferior vena cava is not dilated. 3. The pulmonic valve also is not well visualized. The Doppler pattern is unremarkable. 4. The tricuspid valve is also suboptimally visualized. The Doppler pattern is unremarkable. 5. The mitral valve also is suboptimally visualized. 6. The pulse wave Doppler of mitral inflow shows normal E/A ratio. 7. Tissue Doppler of septal and lateral mitral annulus averages 9 cm. There is no diastolic dysfunction. 8. The right-sided chambers do not appear to be dilated. 9. I do not see evidence of pericardial effusion, mass, and no thrombus. Clinical correlation is recommended. cc: Killian Cronin MD
--- NOTE | 2019-03-14 22:01 | PROGRESS NOTE ---
DATE: 03/14/2019 SUBJECTIVE: The patient herself notes that she is feeling tremendously better. She is much more awake, alert. She is able to answer questions. She is much more verbal. PHYSICAL: Vital signs: Temperature 98, pulse 65, respiratory 20, BP 128/50. General: Patient is very pleasant. She is in minimal respiratory distress. She is currently still BiPAP. We will try to wean this off. HEENT: Normocephalic. Neck: Supple. Cardiovascular: Regular rate. Chest: Decreased, but greatly improved. Minimal wheezing. Abdomen: Soft. Extremities: Moves all extremities. ASSESSMENT: 1. Acute on chronic hypoxic and hypercapnic respiratory failure. 2. Recent aspiration pneumonia. 3. Congestive heart failure with mild exacerbation. 4. Metabolic encephalopathy secondary to hypoxia, resolved. 5. Bipolar. 6. Hypertension. 7. Chronic back pain. 8. Seizures. 9. Diabetes. PLAN: We are going to continue the patient in the hospital, attempt to wean her BiPAP. We will continue breathing treatments, oxygen and will follow her. cc: Flynn Osorio MD
[2019-03-14] MEDS: DIFLUCAN 150 MG/NS 150 MG/75 ML IVPB IV SCH (22:14)
[2019-03-15] MEDS: MAXIPIME 1 GM in NS 50 ML IV SCH ×2 (03:08→16:41)
[2019-03-15] MEDS: DUONEB (A & A) INH SCH ×6 (03:31→23:45)
[2019-03-15] MEDS: ZYVOX 600 MG/D5W 600 MG/300 ML IVPB IV SCH ×2 (05:04→17:49)
[2019-03-15] MEDS: LASIX IV SCH (08:42)
[2019-03-15] MEDS ORDERED: ZOFRAN IV PRN (08:46)
[2019-03-15] MEDS ORDERED: TYLENOL PO PRN (08:46)
--- NOTE | 2019-03-15 17:02 | PROGRESS NOTE ---
DATE: 03/15/2019 SUBJECTIVE: The patient notes that she is feeling a lot better. Denies any cough or congestion. States her shortness of breath has effectively improved. PHYSICAL EXAMINATION: Temperature 97.8 degrees, pulse 66, respiratory rate 18 to 22, BP 179/71.General: Patient is awake, alert. She is in no current respiratory distress. She is pleasant. She currently is off BiPAP. She is still on nasal cannula. HEENT: Normocephalic. Neck: Supple. Cardiovascular: Regular rate. Chest: Decreased but equal, much improved air movement from admission. Abdomen: Soft, nondistended. Extremities: Moves all extremities. Neurologic: Patient is awake, alert, oriented. ASSESSMENT: 1. Acute hypoxic and hypercapnic respiratory failure, improved. 2. Recent diagnosis of aspiration pneumonia. We currently have her on Zyvox and cefepime. She has been afebrile. 3. Congestive heart failure with exacerbation. 4. Bipolar with depression with acute psychosis. 5. History of seizures. 6. Diabetes type 2, diet controlled. PLAN: We will continue patient in the hospital. Continue to wean her breathing treatments, oxygen. If she is afebrile again tomorrow we are going to stop her Zyvox and we will follow. cc: Flynn Osorio MD
[2019-03-15] MEDS: MONISTAT-7 VAG CREAM VAG SCH (20:17)
[2019-03-16] MEDS: MAXIPIME 1 GM in NS 50 ML IV SCH ×2 (03:12→15:38)
[2019-03-16] MEDS: DUONEB (A & A) INH SCH ×6 (03:31→23:59)
[2019-03-16] MEDS: ZYVOX 600 MG/D5W 600 MG/300 ML IVPB IV SCH ×2 (04:53→04:59)
[2019-03-16] MEDS: DOXYCYCLINE PO SCH ×2 (13:09→21:19)
--- NOTE | 2019-03-16 14:03 | PROGRESS NOTE ---
DATE: 03/16/2019 SUBJECTIVE: The patient is feeling a lot better. Shortness of breath has improved. Denies any foreign issues. EXAM: Vital Signs: On physical examination, temperature 98.5, pulse 60, respiratory rate 20, BP 170/73. General: The patient is awake, alert. She is in no current respiratory distress, on nasal cannula. She is pleasant, lying in bed. HEENT: Normocephalic, patent. Heart: No murmurs. Chest: Clear, nonlabored. No wheezing. Abdomen: Soft, nondistended. Extremities: Moves all extremities. ASSESSMENT: 1. Acute hypoxic respiratory failure, improved. The patient has been on BiPAP for 36 hours, on nasal cannula and is stable. 2. Recent diagnosis of aspiration pneumonia, slightly stable on cefepime and Zyvox. I am going to stop the Zyvox and change to give doxycycline at 500. Hopefully, she can transition off cefepime tomorrow and possibly back to [facility]. 3. Metabolic encephalopathy. 4. Bipolar with depression and psychotic features. 5. Congestive heart failure. 6. Diabetes. cc: Flynn Osorio MD
[2019-03-16] MEDS: MONISTAT-7 VAG CREAM VAG SCH (21:19)
[2019-03-17] MEDS: MAXIPIME 1 GM in NS 50 ML IV SCH ×2 (03:29→14:59)
[2019-03-17] MEDS: DUONEB (A & A) INH SCH ×6 (06:09→22:59)
[2019-03-17 06:15] LABS: AGAP 11; ALBUMIN 3.6 g/dL (3.5-5.0); ALKALINE PHOSPHATASE 68 U/L (32-104); BUN 9 mg/dL (8-22); CALCIUM 8.9 mg/dL (8.8-10.2); CHLORIDE 95 mmol/L (98-107); COSMO 275; CREATININE 0.9 mg/dL (0.5-0.9); ESTIMATED GFR > 60; GLUCOSE 148 mg/dL (70-104); GOT 17 U/L (10-30); GPT 15 U/L (10-36); MAGNESIUM 1.7 mg/dL (1.5-2.7); POTASSIUM 2.9 mmol/L (3.5-5.1); SODIUM 137 mmol/L (136-145); TCO2 31 mmol/L (25-35); TOTAL PROTEIN 6.1 g/dL (6.3-8.3)
--- NOTE | 2019-03-17 07:22 | Diag Imaging Result Doc PS360 ---
EXAM: CHEST-2 VIEWS HISTORY: hypoxia TECHNIQUE: Two views COMPARISON: 03/14/2019 FINDINGS: The lungs are well expanded. The heart is not enlarged. The vessels are not distended. There are no infiltrates. No pleural effusions. IMPRESSION: No acute abnormality. Electronically signed by Joon Meier 03/17/2019 7:19 AM
[2019-03-17] MEDS: DOXYCYCLINE PO SCH ×2 (10:00→21:21)
[2019-03-17] MEDS ORDERED: KLOR-CON PO ONE (14:08)
[2019-03-17] MEDS ORDERED: DESYREL PO PRN (15:12)
--- NOTE | 2019-03-17 15:38 | PROGRESS NOTE ---
DATE: 03/17/2019 SUBJECTIVE: The patient has no major complaints. She is feeling better. OBJECTIVE: Vital Signs: Blood pressure 156/67, heart rate of 69, respiratory rate 18, temperature 98.3 degrees, satting 99% on 2 L. Cardiovascular: Regular rate and rhythm. Pulmonary: Bilateral breath sounds. Clear to auscultation. GI: Was soft, nontender, nondistended. Bowel sounds are positive. LABORATORY DATA: I do not have any new data, except potassium is 2.9 today. PROBLEM LIST: 1. Acute hypoxic respiratory failure. She seems to be doing better. Wean her off oxygen. 2. Aspiration-type pneumonia. She is on cefepime and Zyvox, which I think she is improving and should be able to transition her to oral antibiotics. 3. Hypokalemia. We will supplement. 4. Bipolar with depression and psychosis. We will continue regular medications and follow. DISPOSITION: We will get [facility] to re-evaluate tomorrow and see how she does, if she needs re-evaluation and inpatient treatment or not. We will also evaluate for home oxygen. cc: Olaf Arce MD
[2019-03-17 15:39] LABS: AGAP 13; BUN 9 mg/dL (8-22); CALCIUM 9.3 mg/dL (8.8-10.2); CHLORIDE 94 mmol/L (98-107); COSMO 276; CREATININE 0.9 mg/dL (0.5-0.9); ESTIMATED GFR > 60; GLUCOSE 120 mg/dL (70-104); POTASSIUM 2.8 mmol/L (3.5-5.1); SODIUM 138 mmol/L (136-145); TCO2 32 mmol/L (25-35)
[2019-03-17] MEDS ORDERED: XANAX PO SCH (17:00)
[2019-03-17] MEDS: NEUTRA-PHOS PO SCH (21:21)
[2019-03-17] MEDS: XANAX PO SCH (21:21)
[2019-03-17] MEDS: SEROQUEL PO SCH (21:21)
[2019-03-17] MEDS: DESYREL PO SCH (21:21)
[2019-03-17] MEDS: FISH OIL CONCENTRATE PO SCH (21:22)
[2019-03-17] MEDS: CYMBALTA PO SCH (21:22)
[2019-03-17] MEDS: MAG-OX PO SCH (21:22)
[2019-03-17] MEDS: FERROUS SULFATE PO SCH (21:22)
[2019-03-17] MEDS: MONISTAT-7 VAG CREAM VAG SCH (21:23)
[2019-03-18] MEDS: MAXIPIME 1 GM in NS 50 ML IV SCH ×2 (03:05→15:21)
[2019-03-18] MEDS: DUONEB (A & A) INH SCH ×6 (03:49→23:21)
[2019-03-18 06:14] LABS: BASO# 0.01 X1000 (0.0-0.2); BASO% 0.2 % (0.0-0.8); EOS# 0.03 X1000 (0.0-0.7); EOS% 0.5 % (0.0-10.0); HEMATOCRIT 34.3 % (37.0-47.0); HEMOGLOBIN 10.4 g/dL (12.0-16.0); IMM GRAN# 0.02 X1000 (0.0-0.04); IMM GRAN% 0.3 % (0.0-0.5); LYMPH# 3.42 X1000 (1.2-3.4); LYMPH% 54.2 % (20.5-51.1); MCH 29.3 PG (27-31); MCHC 30.3 g/dL (33-37); MCV 96.6 FL (81-99); MONO# 0.58 X1000 (0.11-0.59); MONO% 9.2 % (1.7-9.3); MPV 10.2 FL (7.4-10.4); NEUT# 2.25 X1000 (1.4-6.5); NEUT% 35.6 % (42.2-75.2); PLT 167 X1000 (130-400); RBC 3.55 XMIL (4.2-5.4); RDW 16.2 % (11.5-14.5); WBC 6.31 X1000 (4.8-10.8)
[2019-03-18 06:54] LABS: AGAP 11; BUN 9 mg/dL (8-22); CALCIUM 8.9 mg/dL (8.8-10.2); CHLORIDE 101 mmol/L (98-107); COSMO 283; CREATININE 0.8 mg/dL (0.5-0.9); ESTIMATED GFR > 60; GLUCOSE 122 mg/dL (70-104); MAGNESIUM 1.9 mg/dL (1.5-2.7); SODIUM 142 mmol/L (136-145); TCO2 30 mmol/L (25-35)
[2019-03-18 07:32] LABS: EOS 2 % (1-10); LYMPHS 52 % (21-51); MONO 7 % (1-9); SEGS 39 % (42-75)
[2019-03-18] MEDS: HYDROCHLOROTHIAZIDE PO SCH (09:12)
[2019-03-18] MEDS: XANAX PO SCH ×3 (09:12→22:00)
[2019-03-18] MEDS: GLUCOPHAGE XR PO SCH (09:12)
[2019-03-18] MEDS: PRINIVIL PO SCH (09:12)
[2019-03-18] MEDS: THERA M PLUS PO SCH (09:12)
[2019-03-18] MEDS: FOLIC ACID PO SCH (09:12)
[2019-03-18] MEDS: DOXYCYCLINE PO SCH ×2 (09:13→22:01)
[2019-03-18] MEDS: LITHIUM CARBONATE PO SCH (09:13)
[2019-03-18] MEDS: FERROUS SULFATE PO SCH ×2 (09:13→22:01)
[2019-03-18] MEDS: VITAMIN B-12 PO SCH (09:13)
[2019-03-18] MEDS: NON-FORMULARY MED PO SCH (09:13)
[2019-03-18] MEDS: NEUTRA-PHOS PO SCH ×2 (09:13→21:58)
[2019-03-18] MEDS: MAG-OX PO SCH ×2 (09:13→21:59)
[2019-03-18] MEDS ORDERED: KLOR-CON PO ONE (10:52)
--- NOTE | 2019-03-18 14:55 | PROGRESS NOTE ---
DATE: 03/18/2019 SUBJECTIVE: The patient is doing okay. No complaints. She seems like she is not that agitated either. OBJECTIVE: Vital signs: Blood pressure is 144/70, heart rate of 82, respiratory rate 20, temperature 98.3 degrees, 99% on 2 L. Cardiovascular: Regular rate and rhythm. Pulmonary: Bilateral breath sounds clear to auscultation. GI: Soft, nontender, nondistended. Bowel sounds are positive. LABORATORY DATA: White count 6, hemoglobin and hematocrit 10 and 34, platelets of 167,000. Potassium is still low at 3. PROBLEM LIST: 1. Acute hypoxic respiratory failure. I do not think she qualified for oxygen. She seems to be doing okay. I think she is only on BiPAP intermittently. 2. Aspiration-type pneumonia. She is on cefepime and Zyvox. Cefepime will be day 5 and the Zyvox I think I stopped that yesterday. Will probably transition her to something else. 3. Bipolar depression. We will continue medications and follow. DISPOSITION: We will continue to monitor very closely. [facility] does not feel she meets criteria anymore, so our plan will be for her to go home. The problem is I do not know if she has actually gotten out of bed, although it looks like she has done fairly well with her mobility. So, we are looking at rehab versus home. cc: Olaf Arce MD
[2019-03-18] MEDS: MONISTAT-7 VAG CREAM VAG SCH (21:59)
[2019-03-18] MEDS: CYMBALTA PO SCH (21:59)
[2019-03-18] MEDS: FISH OIL CONCENTRATE PO SCH (22:00)
[2019-03-18] MEDS: DESYREL PO SCH (22:00)
[2019-03-18] MEDS: SEROQUEL PO SCH (22:00)
[2019-03-19] MEDS: MAXIPIME 1 GM in NS 50 ML IV SCH (02:37)
[2019-03-19] MEDS: DUONEB (A & A) INH SCH ×4 (02:43→15:54)
[2019-03-19 06:29] LABS: BASO# 0.01 X1000 (0.0-0.2); BASO% 0.2 % (0.0-0.8); EOS# 0.03 X1000 (0.0-0.7); EOS% 0.5 % (0.0-10.0); HEMATOCRIT 33.8 % (37.0-47.0); HEMOGLOBIN 10.1 g/dL (12.0-16.0); IMM GRAN# 0.01 X1000 (0.0-0.04); IMM GRAN% 0.2 % (0.0-0.5); LYMPH# 3.58 X1000 (1.2-3.4); LYMPH% 58.5 % (20.5-51.1); MCH 29.6 PG (27-31); MCHC 29.9 g/dL (33-37); MCV 99.1 FL (81-99); MONO# 0.51 X1000 (0.11-0.59); MONO% 8.3 % (1.7-9.3); MPV 10.3 FL (7.4-10.4); NEUT# 1.98 X1000 (1.4-6.5); NEUT% 32.3 % (42.2-75.2); PLT 151 X1000 (130-400); RBC 3.41 XMIL (4.2-5.4); RDW 16.6 % (11.5-14.5); WBC 6.12 X1000 (4.8-10.8)
[2019-03-19 06:37] LABS: AGAP 12; BUN 13 mg/dL (8-22); CALCIUM 8.9 mg/dL (8.8-10.2); CHLORIDE 102 mmol/L (98-107); COSMO 279; CREATININE 0.9 mg/dL (0.5-0.9); ESTIMATED GFR > 60; GLUCOSE 131 mg/dL (70-104); POTASSIUM 3.4 mmol/L (3.5-5.1); SODIUM 139 mmol/L (136-145); TCO2 25 mmol/L (25-35)
[2019-03-19] MEDS: PRINIVIL PO SCH (08:58)
[2019-03-19] MEDS: NEUTRA-PHOS PO SCH (08:58)
[2019-03-19] MEDS: MAG-OX PO SCH (08:58)
[2019-03-19] MEDS: HYDROCHLOROTHIAZIDE PO SCH (08:58)
[2019-03-19] MEDS: NON-FORMULARY MED PO SCH (08:58)
[2019-03-19] MEDS: THERA M PLUS PO SCH (08:58)
[2019-03-19] MEDS: DOXYCYCLINE PO SCH (08:58)
[2019-03-19] MEDS: FOLIC ACID PO SCH (08:58)
[2019-03-19] MEDS: VITAMIN B-12 PO SCH (08:58)
[2019-03-19] MEDS: FERROUS SULFATE PO SCH (08:58)
[2019-03-19] MEDS: XANAX PO SCH (08:58)
[2019-03-19] MEDS: GLUCOPHAGE XR PO SCH (08:58)
[2019-03-19] MEDS: LITHIUM CARBONATE PO SCH (08:59)
[2019-03-19 15:37] VITALS: BP 146/62
--- NOTE | 2019-03-19 16:18 | DISCHARGE SUMMARY ---
ADMISSION DATE: 03/13/2019 DISCHARGE DATE: 03/19/2019 PRIMARY CARE PHYSICIAN: Dr. Deni Ely. ADMISSION DIAGNOSES: 1. Acute hypoxic hypercarbic respiratory failure. 2. Recent diagnosis of aspiration pneumonia. 3. An exacerbation of congestive heart failure. 4. Metabolic encephalopathy presumably secondary to #1 as well as underlying psychiatric issues where she was currently being treated at [facility]. 5. History of bipolar and depression with a recent episode of acute psychosis. 6. Hypertension. 7. Chronic back pain. 8. Seizure. 9. Diabetes type 2. 10. A renal mass benign with partial nephrectomy. DISCHARGE DIAGNOSIS: 1. Acute hypoxic hypercarbic respiratory failure, improved. 2. Aspiration type pneumonia, resolved. 3. Bipolar depression. SUMMARY OF FINDINGS: This is a 63-year-old female who presented to the ER from [facility] where she was admitted with global encephalopathy, was found to be somewhat febrile at 99.1, would fall asleep even with her supplemental O2 then her saturation would drop into the 80s after doing breathing treatments, incentive spirometry so they increased her O2 to 5 L, continued to desaturate so EMS was called. When she arrived she had 78% on room air and was tachypneic. We checked an ABG and she was also found to be hypercarbic so placed her on BiPAP. She had a slight elevation in her white count and given her recent admission for pneumonia as well as UTI and suspicion for aspiration pneumonia we placed her on broad-spectrum antibiotics and IV diuresis as her proBNP had doubled. She has responded well to treatment. We ended her antibiotics 2 days ago. Her chest x-ray on 03/17/2019 showed no acute abnormality. She did not qualify for any home O2. Her white count has returned to normal. We did consult [facility] yesterday who did not feel that she was appropriate for inpatient treatment at this time and to follow up outpatient with a current psychiatrist so it is now felt that she could safely be discharged home with home health. DISCHARGE MEDICATIONS: Alprazolam 0.5 mg p.o. t.i.d., cyanocobalamin 1000 mcg p.o. daily, Xigduo XR 5 mg/1000 mg 1 p.o. daily, duloxetine 60 mg p.o. at bedtime, ferrous sulfate 325 mg p.o. b.i.d., folic acid 1 mg p.o. daily, iron supplement 1 p.o. daily, lisinopril/hydrochlorothiazide 20/25 mg 1 p.o. daily, lithium 300 mg p.o. daily, magnesium 400 mg p.o. b.i.d., Monistat 7 vaginal cream 1 applicator vaginally at bedtime, Neutra-Phos 1 p.o. b.i.d., omega-3 fatty acids 1 p.o. at bedtime, quetiapine 300 mg p.o. at bedtime, trazodone 100 mg p.o. at bedtime, trazodone 25 mg p.o. at bedtime p.r.n., Tylenol 650 mg p.o. q.6 hours p.r.n., Ventolin inhaler 2 puffs q.6 hours p.r.n., baclofen 20 mg p.o. t.i.d., cefdinir 300 mg p.o. b.i.d. #14 with no refills, vitamin D 50,000 units p.o. every 7 days, Maalox Plus 30 mL p.o. q.6 hours p.r.n., Bactroban ointment topically b.i.d. and Senokot 2 p.o. daily p.r.n. FOLLOWUP: She will follow up through her home health and will need to obtain a primary care physician. TIME SPENT: 35 minutes. Dictated by ALDO Leonard for Olaf Arce MD cc: ALDO Leonard MD
--- NOTE | 2019-03-19 18:59 | DISCHARGE SUMMARY ---
ADMISSION DATE: 03/13/2019 DISCHARGE DATE: 03/19/2019 ADDENDUM: The patient was seen the day of discharge. She is doing well. No complaints. She is not agitated. She seems to be doing fine. OBJECTIVE: Blood pressure is 129/66, heart rate of 77, respiratory rate 20, temperature 97.9 degrees. Her lungs are clear. She seems to be doing okay. PROBLEM LIST: Pneumonia, possible aspiration type. Her chest x-ray has completely cleared. She is on day 5 of cefepime, so I am going to discharge her on Omnicef. She seems to be doing okay. We did try to qualify her for oxygen and she did not qualify. The plan will be to discharge her home. [facility] re-evaluated her and said she was not appropriate for inpatient, even though she came from there as an inpatient, but I guess she is improved. She has progressed with physical therapy, so feels like we can do home physical therapy instead of rehab, and she should be able to go home. This is a [id number] encounter note with ALDO Leonard. cc: Olaf Arce MD
== END 2019-03-19 16:07 | disposition home health service (06) | DRG 189 ==
LOC: P.ED 12:20 → P.MEDSURG 15:13 → SUATTDRO 15:13
PROVIDERS: ATTEND Internal Medicine